=== PATIENT | male | born 1940 | race Caucasian/White ===

== ENCOUNTER 2021-02-20 14:40 | Outpatient (CLI) | payer MEDICARE, BC | END 2021-02-20 14:41 | disposition home or self-care (01) | LOC: CSHCT 14:40 | PROVIDERS: ATTEND Otolaryngology | DX: J39.2 Other diseases of pharynx (principal); M47.812 Spondylosis without myelopathy or radiculopathy, cervical region; M25.78 Osteophyte, vertebrae; J38.7 Other diseases of larynx | CPT/HCPCS: 70491 ==

== ENCOUNTER 2021-03-01 12:41 | Outpatient (CLI) | payer MEDICARE, BC ==
[2021-03-02 12:02] LABS: SARS-CoV-2 PCR by NAA Not Detected (NotDetected)
== END 2021-03-01 12:42 | disposition home or self-care (01) ==
LOC: CSHLAB 12:41
PROVIDERS: ATTEND Otolaryngology Otolaryngic Allergy
DX: Z20.822 Contact with and (suspected) exposure to COVID-19 (principal)
CPT/HCPCS: U0003; U0005

== ENCOUNTER 2021-03-06 12:19 | Outpatient (CLI) | payer MEDICARE, BC | END 2021-03-06 12:20 | disposition home or self-care (01) | LOC: CSHRAD 12:19 | PROVIDERS: ATTEND Otolaryngology | DX: K22.5 Diverticulum of esophagus, acquired (principal) | CPT/HCPCS: 74220 ==

== ENCOUNTER 2024-10-27 13:08 | Outpatient (CLI) | payer MEDICARE, BC | END 2024-10-27 13:09 | disposition home or self-care (01) | LOC: CSHRAD 13:08 | PROVIDERS: ATTEND Otolaryngology Plastic Surgery within the Head & Neck | DX: Z01.818 Encounter for other preprocedural examination (principal); H81.02 Meniere's disease, left ear | CPT/HCPCS: 71046 ==

== ENCOUNTER 2024-10-29 08:03 | Outpatient (CLI) | payer MEDICARE, BC ==
[2024-10-29 09:05] LABS: Estimated GFR - POC 49.0
== END 2024-10-29 08:04 | disposition home or self-care (01) ==
LOC: CSHMRI 08:03
PROVIDERS: ATTEND Otolaryngology Plastic Surgery within the Head & Neck
DX: H81.02 Meniere's disease, left ear (principal)
CPT/HCPCS: 36415; 70553; 82565